=== PATIENT | female | born 1990 | race Hispanic/Latino ===

== ENCOUNTER 2017-08-26 21:10 | Emergency (ER) | payer BC ==
[2017-08-26 21:37] VITALS: BP 133/82; PULSE 77; RESP 18; TEMP 98; O2SAT 97
[2017-08-26] MEDS ORDERED: Lidocaine 5% Patch TD STA (22:01)
--- NOTE | 2017-08-26 22:06 | ED PDOC ---
HPI: Back Time Seen by Provider: 08/26/17 21:38 Chief Complaint (Nursing): Back Pain History Per: Patient Additional Complaint(s): Pt. states for the past 4 days she's had atraumatic lower back pain radiating down the L leg. States pain initially began on and progressively worsened on Sunday. She has been taking Advil without any relief. States 4 years ago she was dx with a herniated disc in the lumbar spine via MRI. Pt. states she does do a moderate amount of lifting at work but none more than usual. Denies trauma, fever, abdominal pain, N/V/D, hematuria, dysuria, urinary frequency urgency, incontinence. Past Medical History Reviewed: Historical Data, Nursing Documentation, Vital Signs Vital Signs: Last Vital Signs Temp 98.0 F 08/26/17 21:33 Pulse 77 08/26/17 21:33 Resp 18 08/26/17 21:33 BP 133/82 08/26/17 21:33 Pulse Ox 97 08/26/17 21:33 - Family History Family History: States: No Known Family Hx - Home Medications Home Medications: Ambulatory Orders Medication Instructions Recorded Lidocaine 5% [Lidoderm] 1 ea TD DAILY PRN #15 patch 08/26/17 Meloxicam [Mobic] 7.5 mg PO DAILY PRN #30 tab 08/26/17 Methocarbamol [Robaxin] 500 mg PO Q8 PRN #15 tab 08/26/17 Methylprednisolone [Medrol Dose 4 mg PO DAILY #21 mg 08/26/17 Pack (21 tabs)] - Allergies Allergies/Adverse Reactions: Allergies Allergy/AdvReac Type Severity Reaction Status Date / Time No Known Allergies Allergy Verified 08/26/17 21:33 Review of Systems ROS Statement: Except As Marked, All Systems Reviewed And Found Negative Physical Exam - Physical Exam Appears: Positive for: Well, Non-toxic, No Acute Distress Head Exam: Positive for: ATRAUMATIC, NORMAL INSPECTION, NORMOCEPHALIC Skin: Positive for: Normal Color, Warm. Negative for: Rash Gastrointestinal/Abdominal: Positive for: Normal Exam, Soft. Negative for: Tenderness Back: Positive for: Normal Inspection, Muscle Spasm (b/l paralumbar area), Other (SLR positive in L leg at 30 degrees). Negative for: L CVA Tenderness, R CVA Tenderness, Vertebral Tenderness Extremity: Positive for: Normal ROM Neurologic/Psych: Positive for: Alert, Oriented - Laboratory Results Urine POC: Negative Urine dip results: Negative for: Leukocyte Esterase, Blood, Nitrate, Ketones, Glucose, Bilirubin, Protein - ECG O2 Sat by Pulse Oximetry: 97 - Radiology X-Ray: Interpreted by Me (LS spine x-ray) - Progress ED Course And Treament: Toradol 30mg IM, flexeril 10mg PO, LS spine x-ray, lidoderm ordered. Re-evaluation Time: 22:55 (Gait improved. Reports pain has also improved.) Condition: Re-examined, Improving,but remains with symptoms Disposition - Clinical Impression Clinical Impression: Lumbar radiculopathy - Patient ED Disposition Is Patient to be Admitted: No - Disposition Referrals: Chetna Castro [Outside] Disposition: Routine/Home Disposition Time: 22:56 Condition: IMPROVED Prescriptions: Lidocaine 5% [Lidoderm] 1 ea TD DAILY PRN #15 patch PRN Reason: pain Meloxicam [Mobic] 7.5 mg PO DAILY PRN #30 tab PRN Reason: Pain, Mild (1-3) Methocarbamol [Robaxin] 500 mg PO Q8 PRN #15 tab PRN Reason: Muscle Spasm Methylprednisolone [Medrol Dose Pack (21 tabs)] 4 mg PO DAILY #21 mg Instructions: Lumbar Radiculopathy (ED) Forms: Chetna Garcia (Danish), [facility] ED School/Work Excuse
[2017-08-26] MEDS ORDERED: Lidocaine 5% Patch TD ONE (22:18)
--- NOTE | 2017-08-27 14:48 | RAD ---
PROCEDURE: Radiographs of the Lumbar Spine. HISTORY: Back Pain. No history of recent/ related trauma provided COMPARISON: No prior. FINDINGS: BONES: Normal alignment. No listhesis. No fracture. DISC SPACES: Unremarkable. OTHER FINDINGS: None. IMPRESSION: Unremarkable radiographs of the lumbar spine. Concordant results with the preliminary interpretation rendered by the emergency department physician procedure.
== END 2017-08-26 23:10 | disposition home or self-care (01) ==
LOC: H.ER 21:10
DX: M51.16 Intervertebral disc disorders with radiculopathy, lumbar region (principal)
CPT/HCPCS: 72100; 81025; 96372; 99282; J1885